=== PATIENT | female | born 1995 | race Caucasian/White ===

== ENCOUNTER → 2020-07-05 | Outpatient (CLI) | payer BC | END | disposition home or self-care (01) | LOC: XYW 10:20 | PROVIDERS: ATTEND Orthopaedic Surgery Sports Medicine | DX: M16.12 Unilateral primary osteoarthritis, left hip (principal); M21.852 Other specified acquired deformities of left thigh; M25.452 Effusion, left hip | CPT/HCPCS: 73721 ==

== ENCOUNTER → 2020-07-11 | Outpatient (CLI) | payer BC ==
[~2020-07-11] MED LIST: BUPIVACAINE HCL 0.25% P/F 10 ML VIAL ONE; IOHEXOL 300 MG/ML 100ML BOTTLE IJ ONE; LIDOCAINE 2%HCL (LOCAL ANESTH.) INJ 20ML MDV ONE; methylPREDNISolone ACETATE 80 MG/ML VL ONE
== END | disposition home or self-care (01) ==
LOC: XY 13:03
PROVIDERS: ATTEND Orthopaedic Surgery Sports Medicine
DX: M16.12 Unilateral primary osteoarthritis, left hip (principal)
CPT/HCPCS: 73501; J1040; J3490; Q9967

== ENCOUNTER → 2022-04-15 | Outpatient (CLI) | payer BC ==
[2022-04-15 07:54] LABS: Basophils # (auto) 0 10 ^3/uL (0-0.2); Basophils % (auto) 0.4 % (0.0-2.0); Eosinophils # (auto) 0 10 ^3/uL (0-0.8); Eosinophils % (auto) 0.6 % (0.0-7.0); Hematocrit 40.2 % (36.0-46.0); Hemoglobin 13.6 g/dL (12.2-16.2); Lymphocytes # (auto) 2.7 10 ^3/uL (0.4-5.4); Lymphocytes % (auto) 46.9 % (10.0-50.0); Mean Corpuscular Hgb Conc. 33.8 g/dL (32.0-36.0); Mean Corpuscular Volume 88.7 fL (80.0-100.0); Monocytes # (auto) 0.5 10 ^3/uL (0-1.3); Monocytes % (auto) 8.5 % (0.0-12.0); Neutrophils # (auto) 2.5 10 ^3/uL (1.6-8.6); Neutrophils % (auto) 43.6 % (37.0-80.0); Nucleated Red Blood Cells % 0.1 %; Red Blood Cells 4.53 10^6/uL (4.0-5.20); Red Cell Distribution Width 13.2 % (11.8-14.3); White Blood Cell 5.7 10^3/uL (4.4-10.8)
[2022-04-15 08:24] LABS: Potassium 3.7 mmol/L (3.5-5.1)
[2022-04-15 08:40] LABS: Albumin 4.1 g/dL (3.4-5.0); BUN/Creatinine Ratio 20.7; Bilirubin, Total 0.6 mg/dL (0.2-1.0); Calcium 9.1 mg/dL (8.5-10.1); Total Protein 8.3 g/dL (6.4-8.2)
[2022-04-15 08:51] LABS: % Iron Saturation 19.1 % (15-50)
[2022-04-15 14:49] LABS: Hepatitis A Ab IgM Negative; Hepatitis B Core IgM Negative; Hepatitis C Antibody Negative (Negative)
[2022-04-15 17:55] LABS: Urine Specific Gravity > 1.050 (1.001-1.035)
[2022-04-15 17:56] LABS: Urine Blood Negative /uL (Negative)
[2022-04-16 08:06] LABS: RPR Non Reactive (Non Reactive)
== END | disposition home or self-care (01) ==
LOC: LAB 07:00
PROVIDERS: ATTEND Internal Medicine
DX: Z00.00 Encounter for general adult medical examination without abnormal findings (principal); E66.9 Obesity, unspecified; M16.12 Unilateral primary osteoarthritis, left hip
CPT/HCPCS: 36415; 80053; 80061; 80074; 81001; 83036; 83540; 83550; 84443; 85025; 86592; 86703

== ENCOUNTER → 2022-05-22 | Outpatient (CLI) | payer BC ==
[~2022-05-22] MED LIST changes: +LIDOCAINE 2%HCL (LOCAL ANESTH.) INJ 10ml MDV ONE; -LIDOCAINE 2%HCL (LOCAL ANESTH.) INJ 20ML MDV ONE
== END | disposition home or self-care (01) ==
LOC: XY 10:04
PROVIDERS: ATTEND Orthopaedic Surgery Sports Medicine
DX: M16.12 Unilateral primary osteoarthritis, left hip (principal)
CPT/HCPCS: 20610; 73501; 76000; J1040; J2001; J3490; Q9967

== ENCOUNTER 2022-06-21 12:24 | Emergency (ER) | payer BC ==
[~2022-06-21] VITALS: Ht 167.6 cm; Wt 97.3 kg
[2022-06-21] MEDS ORDERED: PRED20TA2 PO (13:40)
[2022-06-21] MEDS ORDERED: IBUP800T27 PO (13:40)
[2022-06-21] MEDS ORDERED: KETOROLAC TROMETH 60MG/2ML VIAL IM ONE (13:45)
[2022-06-21 13:52] VITALS: BP 127/77
== END 2022-06-21 13:53 | disposition home or self-care (01) ==
LOC: ER 12:24
DX: M54.32 Sciatica, left side (principal); G89.29 Other chronic pain; M25.552 Pain in left hip
CPT/HCPCS: 73502; 96372; 99283; J1885

== ENCOUNTER → 2022-08-07 | Outpatient (CLI) | payer BC ==
[~2022-08-07] MED LIST changes: -BUPIVACAINE HCL 0.25% P/F 10 ML VIAL ONE; +IBUP800T27 PO; -IOHEXOL 300 MG/ML 100ML BOTTLE IJ ONE; -LIDOCAINE 2%HCL (LOCAL ANESTH.) INJ 10ml MDV ONE; +PRED20TA2 PO; -methylPREDNISolone ACETATE 80 MG/ML VL ONE
== END | disposition home or self-care (01) ==
LOC: LAB 11:38
PROVIDERS: ATTEND Internal Medicine
DX: E03.9 Hypothyroidism, unspecified (principal); M25.552 Pain in left hip; M54.50 Low back pain, unspecified
CPT/HCPCS: 36415; 84443; 85652

== ENCOUNTER → 2022-09-17 | Outpatient (CLI) | payer BC | END | disposition home or self-care (01) | LOC: LAB 12:44 | PROVIDERS: ATTEND Internal Medicine | DX: E04.1 Nontoxic single thyroid nodule (principal); R68.89 Other general symptoms and signs | CPT/HCPCS: 36415; 84443; 85652 ==

== ENCOUNTER → 2022-12-18 | Outpatient (CLI) | payer BC ==
[~2022-12-18] MED LIST changes: +IBUP-1456 PO; -IBUP800T27 PO
== END | disposition home or self-care (01) ==
LOC: LAB 10:36
PROVIDERS: ATTEND Internal Medicine
DX: E03.9 Hypothyroidism, unspecified (principal)
CPT/HCPCS: 36415; 84443

== ENCOUNTER → 2024-02-20 | Outpatient (CLI) | payer MEDICAID ==
[2024-02-20 07:25] LABS: Basophils # (auto) 0 10 ^3/uL (0-0.2); Basophils % (auto) 0.2 % (0.0-2.0); Eosinophils # (auto) 0 10 ^3/uL (0-0.8); Eosinophils % (auto) 0.6 % (0.0-7.0); Hematocrit 40.1 % (36.0-46.0); Hemoglobin 13.5 g/dL (12.2-16.2); Lymphocytes % (auto) 49.7 % (10.0-50.0); Mean Corpuscular Hemoglobin 30.5 pg (28.0-32.0); Mean Corpuscular Hgb Conc. 33.7 g/dL (32.0-36.0); Mean Corpuscular Volume 90.6 fL (80.0-100.0); Monocytes # (auto) 0.5 10 ^3/uL (0-1.3); Monocytes % (auto) 7.8 % (0.0-12.0); Neutrophils # (auto) 2.5 10 ^3/uL (1.6-8.6); Neutrophils % (auto) 41.7 % (37.0-80.0); Nucleated Red Blood Cells % 0.1 %; Platelet Count (auto) 263 10^3/uL (140-450); Red Blood Cells 4.43 10^6/uL (4.0-5.20); Red Cell Distribution Width 13.4 % (11.8-14.3)
[2024-02-20 07:32] LABS: Urine Bacteria FEW /hpf (None Seen); Urine Blood Negative /uL (Negative); Urine Clarity Cloudy (Clear); Urine Color Yellow (Yellow); Urine Protein, UAD TRACE (Negative); Urine Specific Gravity 1.025 (1.001-1.035); Urine Urobilinogen Normal (Negative); Urine WBC 5 /hpf (0 - 5)
[2024-02-20 07:50] LABS: Alanine Aminotransferase 27 U/L (7-40); Albumin 4.7 g/dL (3.2-4.8); Alkaline Phosphatase 84 U/L (46-116); Triglycerides 131 mg/dL (< 150)
[2024-02-20 07:51] LABS: Anion Gap 6 (5-15); Aspartate Aminotransferase 20 U/L (13-40); BUN/Creatinine Ratio 13.9 (10.0-20.0); Bilirubin, Total 0.5 mg/dL (0.2-1.0); Blood Urea Nitrogen 11 mg/dL (9-23); Carbon Dioxide 27 mmol/L (20-31); Chloride 106 mmol/L (98-107); Cholesterol 187 mg/dL (< 200); Glucose 93 mg/dL (74-106); HDL Cholesterol 49 mg/dL (40-59); LDL Cholesterol 132 mg/dL (< 100); Potassium 4.4 mmol/L (3.5-5.1); Sodium 139 mmol/L (136-145)
== END | disposition home or self-care (01) ==
LOC: LAB 06:58
PROVIDERS: ATTEND Internal Medicine
DX: E03.9 Hypothyroidism, unspecified (principal); E66.9 Obesity, unspecified
CPT/HCPCS: 36415; 80053; 80061; 81001; 82306; 82607; 83036; 84443; 85025

== ENCOUNTER → 2024-09-20 | Outpatient (CLI) | payer MEDICAID | END | disposition home or self-care (01) | LOC: LAB 09:18 | PROVIDERS: ATTEND Internal Medicine | DX: E03.9 Hypothyroidism, unspecified (principal); E55.9 Vitamin D deficiency, unspecified | CPT/HCPCS: 36415; 82306; 84443 ==